=== PATIENT | female | born 1995 | race Caucasian/White ===

== ENCOUNTER → 2017-08-23 | Outpatient (REF) | payer BC ==
[~2017-08-23] MED LIST: ALBU8.5H IH; PRED20TA6 PO
[2017-08-23 19:58] LABS: PLATELET COUNT, AUTOMATED 325 K/uL (150-450)
== END ==
LOC: ZZSTITCHES 19:29
PROVIDERS: ATTEND Physician Assistant
DX: R10.9 Unspecified abdominal pain (principal); K21.9 Gastro-esophageal reflux disease without esophagitis
CPT/HCPCS: 82040; 82247; 82310; 82374; 82435; 82565; 82947; 84075; 84132; 84155; 84295; 84450; 84460; 84520; 85025

== ENCOUNTER 2017-09-01 00:23 | Day surgery (SDC) | payer BC ==
[~2017-09-01] VITALS: Ht 162.6 cm; Wt 59.0 kg
--- NOTE | 2017-09-01 07:07 | Post Operative Progress Note ---
Post Operative Progress Note Date: September 01, 2017 Time: 12:02 Surgeon: esther Anesthesia: dr mattson Pre-Op Diagnosis: rectal bleeding Post-Op Diagnosis: normal Procedure(s): colonoscopy with biopsy OXANA TILLMAN MD September 01, 2017 07:07
--- NOTE | 2017-09-01 07:08 | Short(Outpt) Discharge Summary ---
Discharge Summary Reason for Hosp/Final Diag: (1) Rectal bleeding Hospital Course & Plan: normal exam Departure Discharge to: Home Discharge Instructions Home Meds Discontinued Scripts Prednisone (PREDNISONE) 20 Mg Tablet, 40 MG PO QDAY, #8 TAB 0 Refills Prov:BOZENA HOWELL MD 01/29/17 Albuterol Sulfate 90 Mcg/Act (PROAIR HFA 90 MCG/ACT) 8.5 Gm Hfa.aer.ad, 2 PUFF IH Q4-6H Y for SHORTNESS OF BREATH, #1 INHALER 0 Refills Prov:BOZENA HOWELL MD 01/29/17 Diet: Regular Activity: As Tolerated OXANA TILLMAN MD September 01, 2017 07:08
[2017-09-01] MEDS ORDERED: PROPOFOL EMUL(*) 10MG/ML 20 ML 40 ML ONE (07:22)
[2017-09-01 10:05] VITALS: BP 111/65
[2017-09-01] MEDS ORDERED: NORMOSOL R SOLN(*) 1000 ML BAG 1,000 ML IV PRN (10:10)
[2017-09-01] MEDS ORDERED: LIDOCAINE/SOD BICARB 8.4% SYR ID ONE (10:10)
[2017-09-01] MEDS ORDERED: SUCCINYLCHOL CHL 200MG/10ML VL ONE (11:30)
[2017-09-01] MEDS ORDERED: PROPOFOL EMUL(*) 10MG/ML 20 ML 20 ML ONE (11:40)
[2017-09-01 11:54] VITALS: BP 87/47
[2017-09-01 11:56] VITALS: BP 91/50
[2017-09-01 12:13] VITALS: BP 93/62
[2017-09-01 12:34] VITALS: BP 101/74
[2017-09-01 12:35] VITALS: BP 103/74
--- NOTE | 2017-09-01 17:18 | OPERATIVE REPORT 1 ---
EVENT DATE: September 01, 2017 SURGEON: Harvey Valle MD ANESTHESIOLOGIST: Kem Jarvis MD ANESTHESIA: Sedation. PREOPERATIVE DIAGNOSIS Rectal bleeding. POSTOPERATIVE DIAGNOSIS Normal-appearing colonoscopic examination. PROCEDURE PERFORMED Colonoscopy with biopsy. DESCRIPTION OF PROCEDURE Patient was placed in the left lateral decubitus position and given intravenous sedation. Rectal exam was unremarkable. No fissures, fistulas. No palpable abnormalities on digital exam. Flexible colonoscope was inserted and advanced to the cecum. She had an excellent bowel prep. We cannulated the ileocecal valve. Terminal ileum appeared to be normal. We did biopsy it. Cecum appeared to be normal. We did some random biopsies in the right colon. Transverse colon was normal. We took some random biopsies from the left colon, which appeared to be normal. Rectum was normal. We took some random biopsies there. Scope was retroflexed, and that appeared to be normal. Patient tolerated the procedure well. No apparent complications. [facility]
== END 2017-09-01 13:00 | disposition home or self-care (01) ==
LOC: OR 00:23
PROVIDERS: ATTEND Surgery
DX: K62.5 Hemorrhage of anus and rectum (principal)
CPT/HCPCS: 00811; 45380; 81025; 88305; J0330; J2704